=== PATIENT | male | born 1995 | race African-American/Black ===

== ENCOUNTER 2021-01-12 16:37 | Emergency (ER) | payer SELFPAY ==
[~2021-01-12] VITALS: Ht 167.6 cm; Wt 61.4 kg
[2021-01-12 16:53] VITALS: BP 130/89; TEMP 99
[2021-01-12] MEDS ORDERED: AMOXICILLIN 8751 TAB PO (17:33)
[2021-01-12 17:42] VITALS: PULSE 89
== END 2021-01-12 17:44 | disposition home or self-care (01) ==
LOC: COL.ER 16:37
DX: K61.0 Anal abscess (principal)

== ENCOUNTER 2021-10-21 12:47 | Emergency (ER) | payer SELFPAY ==
[~2021-10-21] VITALS: Ht 167.6 cm; Wt 56.8 kg
[~2021-10-21 12:47] MED LIST: AMOXICILLIN 8751 TAB PO
[2021-10-21 13:05] VITALS: BP 125/79; TEMP 98.6
[2021-10-21 13:38] VITALS: PULSE 87
== END 2021-10-21 13:38 | disposition home or self-care (01) ==
LOC: COL.ER 12:47
DX: Z20.2 Contact with and (suspected) exposure to infections with a predominantly sexual mode of transmission (principal); Z28.310 Unvaccinated for COVID-19
CPT/HCPCS: J0696